=== PATIENT | female | born 1955 | race Caucasian/White ===

== ENCOUNTER 2016-12-02 11:45 | Emergency (ER) | payer BC, OTHER ==
[2016-12-02] MEDS ORDERED: SODIUM CHLORIDE 0.9% 1,000 ML IV ONE (13:39)
== END 2016-12-02 14:51 | disposition home or self-care (01) ==
DX: E86.0 Dehydration (principal); K52.9 Noninfective gastroenteritis and colitis, unspecified; H66.002 Acute suppurative otitis media without spontaneous rupture of ear drum, left ear